=== PATIENT | female | born 1995 | race Caucasian/White ===

== ENCOUNTER 2017-11-08 12:56 | Emergency (ER) | payer OTHER ==
[2017-11-08 13:01] VITALS: BP 114/64; PULSE 102; TEMP 98.9; BMI 24.9
--- NOTE | 2017-11-08 13:53 | PDOC ---
History of Present Illness - General History Source: Patient Exam Limitations: No Limitations - History of Present Illness Initial Comments: 11/08/17 13:54 The patient is a 22 year old female, approximately 18 weeks (LMP ) with no significant past medical history, who presents to the emergency department with possible hematuria today. She states she noticed light red with urination today. She states she can not tell if the discoloration is coming from her vagina or her urine. She denies any abdominal cramping. She denies chest pain, shortness of breath, headache and dizziness. She denies fever, chills, nausea, vomit, diarrhea and constipation. She denies dysuria, frequency, urgency. Allergies: NKDA Past surgical history: none reported Social history: denies ETOH and tobacco Hospital Medical Biller: Dr. Whitney <Matilde Resendiz - Last Filed: 11/08/17 13:53> - General History Source: Patient Exam Limitations: No Limitations <Christ Campbell - Last Filed: 11/08/17 14:59> - General Chief Complaint: Vaginal Bleeding Stated Complaint: VAGINAL BLEEDING (18 WKS ) Time Seen by Provider: 11/08/17 13:32 Past History <Matilde Resendiz - Last Filed: 11/08/17 13:53> - Past Medical History COPD: No - Suicide/Smoking/Psychosocial Hx Smoking History: Never smoked <Christ Campbell - Last Filed: 11/08/17 14:59> - Past Medical History Allergies/Adverse Reactions: Allergies Allergy/AdvReac Type Severity Reaction Status Date / Time No Known Allergies Allergy Verified 11/08/17 13:01 Home Medications: Ambulatory Orders Cephalexin [Keflex] 500 mg PO BID #14 capsule 11/08/17 Review of Systems - Review of Systems Comments:: 11/08/17 13:54 GENERAL/CONSTITUTIONAL: No fever or chills. No weakness. HEAD, EYES, EARS, NOSE AND THROAT: No change in vision. No ear pain or discharge. No sore throat. CARDIOVASCULAR: No chest pain or shortness of breath. RESPIRATORY: No cough, wheezing, or hemoptysis. GASTROINTESTINAL: No nausea, vomiting, diarrhea or constipation. GENITOURINARY: (+) hematuria. No dysuria, frequency. MUSCULOSKELETAL: No joint or muscle swelling or pain. No neck or back pain. SKIN: No rash NEUROLOGIC: No headache, vertigo, loss of consciousness, or change in strength/ sensation. ENDOCRINE: No increased thirst. No abnormal weight change. HEMATOLOGIC/LYMPHATIC: No anemia, easy bleeding, or history of blood clots. ALLERGIC/IMMUNOLOGIC: No hives or skin allergy. <JennyMatilde billings - Last Filed: 11/08/17 13:53> *Physical Exam - Vital Signs Last Vital Signs Temp Pulse Resp BP Pulse Ox 98.9 F 102 H 20 114/64 99 11/08/17 12:57 11/08/17 12:57 11/08/17 12:57 11/08/17 12:57 11/08/17 12:57 - Physical Exam Comments: 11/08/17 13:54 GENERAL: Awake, alert, and fully oriented, in no acute distress HEAD: No signs of trauma EYES: PERRLA, EOMI, sclera anicteric, conjunctiva clear ENT: Auricles normal inspection, hearing grossly normal, nares patent, oropharynx clear without exudates. Moist mucosa NECK: Normal ROM, supple, no lymphadenopathy, JVD, or masses LUNGS: Breath sounds equal, clear to auscultation bilaterally. No wheezes, and no crackles HEART: Regular rate and rhythm, normal S1 and S2, no murmurs, rubs or gallops ABDOMEN: Soft, nontender, normoactive bowel sounds. No guarding, no rebound. No masses EXTREMITIES: Normal range of motion, no edema. No clubbing or cyanosis. No cords, erythema, or tenderness NEUROLOGICAL: Cranial nerves II-XII intact. Normal speech, normal gait. Sensation intact in upper and lower extremities. 5/5 motor strength in upper and lower extremities. No pronator drift. Finger to nose intact. Rapid alternations intact. SKIN: Warm, Dry, normal turgor, no rashes or lesions noted. PELVIC: Cervical Os is closed. No pain elicited on speculum exam. No blood in vault. <Matilde Resendiz - Last Filed: 11/08/17 13:53> - Vital Signs Last Vital Signs Temp Pulse Resp BP Pulse Ox 98.9 F 102 H 20 114/64 99 11/08/17 12:57 11/08/17 12:57 11/08/17 12:57 11/08/17 12:57 11/08/17 12:57 <Christ Campbell - Last Filed: 11/08/17 14:59> Medical Decision Making - Medical Decision Making 11/08/17 13:52 A portion of this note was written by my scribe, under my supervision. Vital Signs Temp Pulse Resp BP Pulse Ox 98.9 F 102 H 20 114/64 99 11/08/17 12:57 11/08/17 12:57 11/08/17 12:57 11/08/17 12:57 11/08/17 12:57 22 year old female c/ hx ovarian cyst, approx 18 weeks presents with small vaginal blood upon wiping. Denies abdominal pain, denies vaginal bleeding, denies dysuria, fevers, chills. Otherwise appears well. PROFESSIONAL SECURITY OFFICER exam unremarkable. Pt's blood type on prior exams is O positive. Will r/o miscarriage. Pelvic ultrasound. UA/UC to r/o UTI. 11/08/17 14:55 Ultrasound demonstrates a FHR 160 and IUP 19 weeks. UA reviewed. Will treat as UTI. Pt feels reassurred. Pt has an appointment with her snow plow tractor operator in 3 days. <Christ Campbell - Last Filed: 11/08/17 14:59> *DC/Admit/Observation/Transfer - Attestations Scribe Attestion: 11/08/17 13:55 Documentation prepared by Matilde Resendiz, acting as medical device sales for Christ Campbell MD <Matilde Resendiz - Last Filed: 11/08/17 13:53> - Discharge Dispostion Decision to Admit order: No <Christ Campbell - Last Filed: 11/08/17 14:59> Diagnosis at time of Disposition: UTI (urinary tract infection) Qualifiers: Urinary tract infection type: site unspecified Hematuria presence: with hematuria Qualified Code(s): N39.0 - Urinary tract infection, site not specified ; R31.9 - Hematuria, unspecified - Discharge Dispostion Disposition: HOME Condition at time of disposition: Stable - Prescriptions Prescriptions: Cephalexin [Keflex] 500 mg PO BID #14 capsule - Referrals Referrals: Jerson Mullins MD [Primary Care Provider] - - Patient Instructions Printed Discharge Instructions: DI for Urinary Tract Infection (UTI), DI for Hematuria Additional Instructions: Please take keflex 500 mg every 12 hours for the next 7 days. This medication is safe for . Please take the medication. Follow up with your ANIME ARTIST doctor. - Post Discharge Activity
[2017-11-08 14:03] LABS: URINE APPEARANCE SLCLOUDY; URINE BILIRUBIN NEGATIVE (<2.0 mg/dL); URINE COLOR YELLOW; URINE GLUCOSE (UA) NEGATIVE (NEGATIVE); URINE KETONE NEGATIVE (NEGATIVE); URINE LEUK ESTERASE NEGATIVE (NEGATIVE); URINE NITRITE NEGATIVE (NEGATIVE); URINE PROTEIN NEGATIVE (NEGATIVE); URINE UROBILINOGEN NEGATIVE mg/dL (0.2-1.0)
[2017-11-08 14:20] LABS: CALCIUM OXALATE CRYSTALS FEW /hpf (NONE SEEN); EPI CELLS RARE /HPF (FEW); URINE BACTERIA RARE /hpf (NONE SEEN)
[2017-11-08] MEDS ORDERED: CEPHALEXIN MONOHYDRATE 500 MG CAPSULE (UD) PO ONE (14:57)
[2017-11-08] MEDS ORDERED: CEPHALEXIN MONOHYDRATE 500 MG CAPSULE (UD) ONE (15:00)
== END 2017-11-08 15:17 | disposition home or self-care (01) ==
LOC: JER 12:56
DX: O26.892 Other specified pregnancy related conditions, second trimester (principal); N39.0 Urinary tract infection, site not specified; R31.9 Hematuria, unspecified
CPT/HCPCS: 76816-TC; 81003; 81015; 87086; 99282-25

== ENCOUNTER 2018-03-31 20:00 | Inpatient (IN) | payer OTHER ==
[2018-03-31] MEDS ORDERED: DEXTROSE 5%-LACTATED RINGERS 1,000 ML IV SCH (21:15)
[2018-03-31] MEDS ORDERED: OXYTOCIN 30 UNITS in 0.9% NS 30 UNIT/500 ML INFUS.BAG IVPB SCH (21:15)
--- NOTE | 2018-03-31 21:23 | HP ---
Past Medical History - Admission Chief Complaint: Abdominal pain History of Present Illness: 23 yo , @ 39 weeks gestation, EDC 04/03/18, presents c/o abdominal pain. She denies any vaginal bleeding nor ROM. She was found to be 2cm dilated. Decision made for admission for induction of labor. History Source: Patient Limitations to Obtaining History: No Limitations - Past Medical History ...: 1 ...Para: 0 ...EDC by Sono: 04/03/18 - Past Surgical History Past Surgical History: Yes: None Hx Myomectomy: No Hx Transabdominal Cerclage: No - Smoking History Smoking history: Never smoked - Alcohol/Substance Use Hx Alcohol Use: No History of Substance Use: reports: None - Social History History of Recent Travel: No Home Medications - Allergies Allergies/Adverse Reactions: Allergies Allergy/AdvReac Type Severity Reaction Status Date / Time No Known Allergies Allergy Verified 03/31/18 21:07 - Home Medications Home Medications: Ambulatory Orders Vitamins (Sjr) - 1 tab PO DAILY 03/31/18 Review of Systems - Review of Systems Constitutional: reports: No Symptoms Eyes: reports: No Symptoms HENT: reports: No Symptoms Neck: reports: No Symptoms Cardiovascular: reports: No Symptoms Respiratory: reports: No Symptoms Gastrointestinal: reports: No Symptoms Genitourinary: reports: Pain Breasts: reports: No Symptoms Reported Musculoskeletal: reports: No Symptoms Neurological: reports: No Symptoms Endocrine: reports: No Symptoms Psychiatric: reports: No Symptoms Pain Intensity: 3 Physical Exam - Maternity Constitutional: Yes: Well Nourished Eyes: Yes: Conjunctiva Clear HENT: Yes: Atraumatic Neck: Yes: Supple Cardiovascular: Yes: Regular Rate and Rhythm - Abdominal Exam/OB Number of Fetuses: Single Presentation: Vertex - Vaginal Exam/OB Dilatation (cm): 2 Effacement (%): 80 Amniotic Membrane Status: Intact Presentation: Vertex/Position Station: -1 - Physical Exam Musculoskeletal: Yes: WNL Extremities: Yes: WNL ...Motor Strength: WNL Psychiatric: Yes: Alert, Oriented Problem List - Problems (1) 39 weeks gestation of Code(s): Z3A.39 - 39 WEEKS GESTATION OF Assessment/Plan 39 weeks gestation Admit to L&D Analgesia as needed Pitocin augmentation Anticipate
[2018-03-31 21:31] VITALS: BMI 29.6
[2018-03-31 21:41] LABS: BASO % 0.1 % (0-2.0); EOS % 0.1 % (0-4.5); HEMATOCRIT 31.2 % (32.4-45.2); HEMOGLOBIN 11.1 GM/dL (10.7-15.3); LYMPH % 18.6 % (8-40); MCH 30.7 pg (25.7-33.7); MCHC 35.5 g/dl (32.0-36.0); MEAN CELL VOLUME 86.2 fl (80-96); MEAN PLT VOLUME 9.7 fl (7.5-11.1); MONO % 8.3 % (3.8-10.2); NEUT % 72.9 % (42.8-82.8); PLATELET COUNT 182 K/MM3 (134-434); RBC 3.62 M/mm3 (3.60-5.2); RDW 14.1 % (11.6-15.6); WHITE BLOOD COUNT 8.2 K/mm3 (4.0-10.0)
[2018-03-31 21:54] LABS: INR 0.95 (0.83-1.09); PROTHROMBIN TIME (PATIENT) 11.2 SEC (9.7-13.0)
[2018-03-31 21:56] LABS: ACTIVATED PTT 21.7 SECONDS (25.2-36.5)
[2018-03-31 22:15] LABS: ANION GAP 8 MMOL/L (8-16); BLOOD UREA NITROGEN 8 mg/dL (7-18); CALCIUM 8.6 mg/dL (8.5-10.1); CHLORIDE 108 mmol/L (98-107); CO2 22 mmol/L (21-32); CREATININE 0.7 mg/dL (0.55-1.3); GLUCOSE,RANDOM 84 mg/dL (74-106); POTASSIUM 3.6 mmol/L (3.5-5.1); SODIUM 139 mmol/L (136-145)
[2018-03-31] MEDS ORDERED: OXYTOCIN 30 UNITS in 0.9% NS 30 UNIT/500 ML INFUS.BAG IVPB ONE (22:20)
[2018-04-01] MEDS ORDERED: FENTANYL/BUPIVACAINE/NS/PF - PCEA - 50 ML DISP.SYRIN EP ONE ×2 (00:40→04:48)
[2018-04-01] MEDS ORDERED: ELECTROLYTE-148 SOLN 1,000 ML IV SCH (00:45)
[2018-04-01] MEDS ORDERED: NALOXONE HCL 0.4 MG/ML VIAL IVPUSH PRN (00:47)
[2018-04-01] MEDS ORDERED: FENTANYL/BUPIVACAINE/NS/PF - PCEA - 50 ML DISP.SYRIN EP SCH (01:00)
[2018-04-01] MEDS ORDERED: ACETAMINOPHEN 325 MG TABLET (FP) ONE (05:18)
[2018-04-01] MEDS ORDERED: ACETAMINOPHEN 325 MG TABLET (FP) PO ONE (05:30)
[2018-04-01] MEDS ORDERED: LIDOCAINE HCL 1% PRESERVATIVE FREE - 30ML VIAL ONE (05:42)
[2018-04-01] MEDS ORDERED: OXYTOCIN 20 UNITS in 0.9% NS 20 UNIT/1,000 ML INFUS.BAG IV ONE (05:42)
[2018-04-01] MEDS ORDERED: WITCH HAZEL 50% (TUCKS) 40 PAD/JAR PAD TP PRN (07:31)
[2018-04-01] MEDS ORDERED: BENZOCAINE 28 GM HEMORRHOIDAL OINTMENT TP PRN (07:31)
[2018-04-01] MEDS ORDERED: METHYLERGONOVINE MALEATE 0.2 MG/1 ML AMP IM PRN (07:31)
[2018-04-01] MEDS ORDERED: BENZOCAINE 20% 57 GM BOTTLE TP PRN (07:31)
[2018-04-01] MEDS ORDERED: BISACODYL 10 MG SUPP.RECT RC PRN (07:31)
--- NOTE | 2018-04-01 07:36 | PN ---
Delivery - Delivery Vaginal Delivery: Spontaneous Type of Anesthesia: Epidural Episiotomy/Laceration: 1st degree EBL (cc): 300 Delivery, Single - [place] Feeding Plan Initial Plan: Exclusive throughout hospitalization Remarks - Remarks Remarks: Normal spontaneous vaginal delivery of a live girl over labial laceration. Nose / Oropharynx suctioned @ perineum. Nuchal cord x 1 clamped and cut. Baby handed to neonatology nurse Placenta expelled spontaneously intact. Labial laceration repaired with 2.0 Biosyn.
[2018-04-01] MEDS ORDERED: OXYTOCIN 20 UNITS in 0.9% NS 20 UNIT/1,000 ML INFUS.BAG IV SCH (07:45)
[2018-04-01] MEDS ORDERED: IBUPROFEN 600 MG TABLET (FP) PO ONE (09:15)
[2018-04-01] MEDS: IBUPROFEN 600 MG TABLET (FP) PO PRN ×2 (09:20→20:38)
[2018-04-01] MEDS: FERROUS SO4 325 MG TABLET (FP) PO SCH ×3 (11:04→22:00)
[2018-04-01] MEDS: PRENATAL VITAMINS W/ FOLIC ACID TABLET (FP) PO SCH (11:04)
[2018-04-01] MEDS: ACETAMINOPHEN 325 MG TABLET (FP) PO PRN (20:38)
[2018-04-02] MEDS: IBUPROFEN 600 MG TABLET (FP) PO PRN ×2 (06:08→17:11)
[2018-04-02] MEDS: ACETAMINOPHEN 325 MG TABLET (FP) PO PRN ×2 (06:08→17:11)
[2018-04-02 07:58] LABS: BASO % 0.1 % (0-2.0); EOS % 0.3 % (0-4.5); HEMATOCRIT 26.7 % (32.4-45.2); HEMOGLOBIN 8.6 GM/dL (10.7-15.3); LYMPH % 17.2 % (8-40); MCH 28.3 pg (25.7-33.7); MEAN CELL VOLUME 88.2 fl (80-96); MEAN PLT VOLUME 9.3 fl (7.5-11.1); MONO % 8.6 % (3.8-10.2); NEUT % 73.8 % (42.8-82.8); PLATELET COUNT 145 K/MM3 (134-434); RBC 3.03 M/mm3 (3.60-5.2); RDW 14.3 % (11.6-15.6); WHITE BLOOD COUNT 11.1 K/mm3 (4.0-10.0)
[2018-04-02] MEDS: FERROUS SO4 325 MG TABLET (FP) PO SCH ×2 (10:19→21:29)
[2018-04-02] MEDS: PRENATAL VITAMINS W/ FOLIC ACID TABLET (FP) PO SCH (10:19)
--- NOTE | 2018-04-02 20:05 | PN ---
Post Progress Note - Subjective Subjective: Pt without issues/no acute events overnight or today. Type of Delivery: Vital Signs: Vital Signs Temperature 98.4 F 04/02/18 09:12 Pulse Rate 68 04/02/18 09:12 Respiratory Rate 20 04/02/18 09:12 Blood Pressure 125/73 04/02/18 09:12 O2 Sat by Pulse Oximetry (%) 100 04/01/18 08:15 Uterus: Yes: Fundus Firm Lochia: Yes: Rubra Lochia, amount: Small Extremities: Yes: Calves non-tender Perineum: Yes: Laceration (labial) Activity: Ambulating - Labs Labs: CBC WBC 11.1 K/mm3 (4.0-10.0) H 04/02/18 07:00 RBC 3.03 M/mm3 (3.60-5.2) L 04/02/18 07:00 Hgb 8.6 GM/dL (10.7-15.3) L 04/02/18 07:00 Hct 26.7 % (32.4-45.2) L 04/02/18 07:00 MCV 88.2 fl (80-96) 04/02/18 07:00 MCH 28.3 pg (25.7-33.7) 04/02/18 07:00 MCHC 32.0 g/dl (32.0-36.0) 04/02/18 07:00 RDW 14.3 % (11.6-15.6) 04/02/18 07:00 Plt Count 145 K/MM3 (134-434) D 04/02/18 07:00 MPV 9.3 fl (7.5-11.1) 04/02/18 07:00 Absolute Neuts (auto) 8.2 K/mm3 (1.5-8.0) H 04/02/18 07:00 Neutrophils % 73.8 % (42.8-82.8) 04/02/18 07:00 Lymphocytes % 17.2 % (8-40) 04/02/18 07:00 Monocytes % 8.6 % (3.8-10.2) 04/02/18 07:00 Eosinophils % 0.3 % (0-4.5) D 04/02/18 07:00 Basophils % 0.1 % (0-2.0) 04/02/18 07:00 Nucleated RBC % 0 % (0-0) 04/02/18 07:00 Problem List - Problems (1) Vaginal delivery Code(s): O80 - ENCOUNTER FOR FULL-TERM UNCOMPLICATED DELIVERY Assessment/Plan 23 y/o PPD#1 s/p normal AFVSS Regular diet PO pain meds Hgb 8.6 - continue PO Iron routine care
[2018-04-02] MEDS ORDERED: SENNOSIDES/DOCUSATE COMBO (SENNA PLUS) TABLET (UD) PO PRN (22:00)
[2018-04-03] MEDS: ACETAMINOPHEN 325 MG TABLET (FP) PO PRN ×2 (05:49→12:41)
[2018-04-03] MEDS: IBUPROFEN 600 MG TABLET (FP) PO PRN ×2 (05:49→12:40)
--- NOTE | 2018-04-03 07:32 | DS ---
Physical Exam-MINE MOTOR ENGINEER Vital Signs: Vital Signs Temperature 98.0 F 04/02/18 21:00 Pulse Rate 79 04/02/18 21:00 Respiratory Rate 20 04/02/18 21:00 Blood Pressure 112/71 04/02/18 21:00 O2 Sat by Pulse Oximetry (%) 100 04/01/18 08:15 Labs: CBC, BMP 04/02/18 07:00 03/31/18 21:20 Delivery - Delivery Vaginal Delivery: Spontaneous Type of Anesthesia: Local, Epidural Episiotomy/Laceration: Vaginal Extension/lac, 1st degree EBL (cc): 300 Delivery, Single - Stages of Labor Date 1st Stage Initiatied: 03/31/18 Time 1st Stage Initiated: 22:30 Date 2nd Stage Initiated: 04/01/18 Time 2nd Stage Initiated: 06:25 Date of Delivery: 04/01/18 Time of Delivery: 07:12 Time Placenta Delivered: 07:14 Placenta: Yes: Spontaneous - Condition of Infant Rim Fire Priming Operator/Dairy Department Manager Present: No Gender: Female Weight: 8 lb 8 oz Position: Left, OA Total Hours ROM (Hrs/Mins): 8 hours 24 minutes - 1 Minute Total Score: 9 5 Minutes Total Score: 9 - [place] Feeding Plan Initial Plan: Exclusive throughout hospitalization Discharge Summary Reason For Visit: INDUCTION OF LABOR/LABOR ADMIT Current Active Problems 39 weeks gestation of (Acute) Vaginal delivery (Acute) Procedures: Principal: Normal Condition: Good - Instructions Diet, Activity, Other Instructions: Physical activity Resume your normal everyday activity as tolerated no heavy lifting or strenuous exercise until seen by your doctor. You may walk unlimited [place] of and climb stairs. You may resume driving the car when you feel safe and comfortable behind the wheel. No sexual activity as instructed for 6 weeks. You may shower daily. No soaking in tubs/baths/pools for 6 weeks or until cleared by your doctor. Diet There are no dietary restrictions. Eat healthy, high-fiber foods. Drink 6 to 8 glasses of liquid each day. This will assist in keeping your bowels regular. Pain management You may take Tylenol or Ibuprofen as needed for pain. Call MD for any of the following: Severe pain not relieved by medication Fever of 101 or higher Excessive bleeding or drainage on dressing Inability to urinate Disposition: HOME - Home Medications Comprehensive Discharge Medication List: Ambulatory Orders Vitamins (Sjr) - 1 tab PO DAILY 03/31/18
[2018-04-03 08:45] VITALS: BP 106/78; PULSE 57; TEMP 98.3
[2018-04-03] MEDS: FERROUS SO4 325 MG TABLET (FP) PO SCH (09:12)
[2018-04-03] MEDS: PRENATAL VITAMINS W/ FOLIC ACID TABLET (FP) PO SCH (09:12)
== END 2018-04-03 18:00 | disposition home or self-care (01) | DRG 560 ==
LOC: JDEL 20:00 → JLDR 20:50 → J3W 04-01 09:20
PROVIDERS: ADMIT Obstetrics & Gynecology; ATTEND Obstetrics & Gynecology
PROC: 0HQ9XZZ Repair Perineum Skin, External Approach (ICD-10-PCS; principal; 2018-04-01)
PROC: 10E0XZZ Delivery of Products of Conception, External Approach (ICD-10-PCS; 2018-04-01)
DX: O70.0 First degree perineal laceration during delivery (principal); Z3A.38 38 weeks gestation of pregnancy; Z37.0 Single live birth
CPT/HCPCS: 36415; 59409; 80048; 85025; 85610; 85730; 86593; 86850; 86900; 86901

== ENCOUNTER 2021-10-19 12:22 | Emergency (ER) | payer OTHER ==
[2021-10-19 12:35] VITALS: BP 129/77; PULSE 86; TEMP 98.1; BMI 27.1
[2021-10-19 14:01] LABS: BASO % 0.3 % (0-2.0); EOS % 0.6 % (0-4.5); HEMATOCRIT 36.3 % (32.4-45.2); HEMOGLOBIN 12.7 GM/dL (10.7-15.3); LYMPH % 22.7 % (8-40); MCH 31.8 pg (25.7-33.7); MEAN CELL VOLUME 90.7 fl (80-96); MEAN PLT VOLUME 8.1 fl (7.5-11.1); MONO % 5.9 % (3.8-10.2); NEUT % 70.5 % (42.8-82.8); PLATELET COUNT 250 10^3/uL (134-434); RDW 13.3 % (11.6-15.6); WHITE BLOOD COUNT 7.6 K/mm3 (4.0-10.0)
[2021-10-19 14:04] LABS: HCG,QUALITATIVE URINE Positive
[2021-10-19 14:06] LABS: EPI CELLS 30 /uL (0-25.1); HYALINE CASTS 2 /uL (0-3.1); PH,URINE 7.5 (5.0-8.0); URINE APPEARANCE CLEAR; URINE BACTERIA 1600 /uL (0-1359); URINE BILIRUBIN NEGATIVE (NEGATIVE); URINE COLOR YELLOW; URINE GLUCOSE (UA) NEGATIVE (NEGATIVE); URINE KETONE NEGATIVE (NEGATIVE); URINE LEUK ESTERASE TRACE (NEGATIVE); URINE NITRITE NEGATIVE (NEGATIVE); URINE PROTEIN NEGATIVE (NEGATIVE); URINE RBC 7 /uL (0-23.9); URINE WBC 21 /uL (0-25.8)
[2021-10-19 14:32] LABS: ALBUMIN 3.4 g/dl (3.4-5.0); CALCIUM 9.2 mg/dL (8.5-10.1)
[2021-10-19 14:33] LABS: BLOOD UREA NITROGEN 5.2 mg/dL (7-18)
[2021-10-19 14:35] LABS: CREATININE 0.5 mg/dL (0.55-1.3); PHOSPHOROUS 3.8 mg/dL (2.5-4.9)
[2021-10-19 14:37] LABS: BILIRUBIN,TOTAL 0.4 mg/dL (0.2-1); TOT PROT 6.8 g/dl (6.4-8.2)
== END 2021-10-19 15:03 | disposition home or self-care (01) ==
LOC: JER 12:22
DX: O23.12 Infections of bladder in pregnancy, second trimester (principal); N30.00 Acute cystitis without hematuria; Z3A.17 17 weeks gestation of pregnancy
CPT/HCPCS: 36415; 80053; 81003; 83690; 83735; 84100; 84703; 85025; 87086; 99283-25